=== PATIENT | female | born 1960 | race Caucasian/White ===

== ENCOUNTER → 2019-04-18 | Outpatient (CLI) | payer BC ==
--- NOTE | 2019-04-18 11:55 | Diagnostic Imaging Report ---
INDICATION: Acute shoulder pain, fall with injury. FINDINGS: The AC joint appeared intact. The CC joint space unremarkable. The glenohumeral joint nonacute. No fracture or dislocation. The visualized adjacent ribs and pleura appeared intact. IMPRESSION: No fracture or other acute abnormalities. Dictated by: Dictated on workstation # [id number]
== END ==
LOC: RAD FS 11:29
PROVIDERS: ATTEND Family Medicine
DX: S49.91XA Unspecified injury of right shoulder and upper arm, initial encounter (principal); W19.XXXA Unspecified fall, initial encounter
CPT/HCPCS: 73030